=== PATIENT | female | born 2000 | race Caucasian/White ===

== ENCOUNTER 2018-09-03 08:10 | Emergency (ER) | payer BC, OTHER ==
--- NOTE | 2018-09-03 08:14 | ER Report ---
History and Physical Time Seen By MD: 08:14 HPI/ROS CHIEF COMPLAINT: Abdominal pain, nausea HISTORY OF PRESENT ILLNESS: Patient is a 18-year-old female here with complaints of diffuse abdominal pain, nausea. Patient is afebrile at time of evaluation, hemodynamically stable. Patient is able to tolerate oral intake. REVIEW OF SYSTEMS: Constitutional: No fever, no chills. Eyes: No discharge. ENT: No sore throat. Cardiovascular: No chest pain, no palpitations. Respiratory: No cough, no shortness of breath. Gastrointestinal: Diffuse abdominal pain, no vomiting.+ Nausea Genitourinary: No hematuria. Musculoskeletal: No back pain. Skin: No rashes. Neurological: No headache. Allergies: Coded Allergies: ibuprofen (Verified Allergy, Intermediate, chest pain , 09/03/18) Constitutional Physical Exam General Appearance: The patient is alert, has no immediate need for airway protection and no signs of toxicity. No acute distress Eyes: Pupils equal and round no pallor or injection. ENT, Mouth: Mucous membranes are moist. Respiratory: There are no retractions, lungs are clear to auscultation. Cardiovascular: Regular rate and rhythm. Gastrointestinal: + Diffuse abdominal pain, no distention, rebound or guarding Neurological: No focal neurological findings Skin: Warm and dry, no rashes. Musculoskeletal: Neck is supple non tender. Extremities are nontender, nonswollen and have full range of motion. DIFFERENTIAL DIAGNOSIS: After history and physical exam differential diagnosis was considered for abdominal pain including but not limited to appendicitis, cholecystitis, gastritis and urinary tract infection. Medical Decision Making Data Points Laboratory Hematology Test 09/03/18 08:12 09/03/18 08:40 Urine Color Yellow Urine Clarity Slightly-cloudy Urine pH 5.0 pH (4.8-9.5) Urine Specific Hobbs 1.025 Urine Protein Negative mg/dL (NEGATIVE) Urine Glucose (UA) Negative mg/dL (NEGATIVE) Urine Ketones Negative mg/dL (NEGATIVE) Urine Blood Negative (NEGATIVE) Urine Nitrite Negative (NEGATIVE) Urine Bilirubin Negative (NEGATIVE) Urine Urobilinogen Negative mg/dL (0.2-1.9) Urine Leukocyte Esterase Negative (NEGATIVE) Urine RBC <1 /HPF (0-2/HPF) Urine WBC 2 /HPF (0-5/HPF) Urine Squamous Epithelial Cells Many /LPF (</=FEW) Urine Bacteria Few /HPF (NONE-FEW) Urine Mucus Few /HPF (NONE-FEW) Red Blood Count 4.89 M/uL (4.17-5.56) Mean Corpuscular Volume 91.7 fL (80.0-96.0) Mean Corpuscular Hemoglobin 30.2 pg (26.0-33.0) Mean Corpuscular Hemoglobin Concent 32.9 g/dL (32.0-36.0) Red Cell Distribution Width 14.5 % (11.5-14.5) Mean Platelet Volume 7.5 fL (7.2-11.1) Neutrophils (%) (Auto) 58.2 % (39.4-72.5) Lymphocytes (%) (Auto) 33.0 % (17.6-49.6) Monocytes (%) (Auto) 7.3 % (4.1-12.4) Eosinophils (%) (Auto) 1.0 % (0.4-6.7) Basophils (%) (Auto) 0.5 % (0.3-1.4) Nucleated RBC Relative Count (auto) 0.1 /100WBC Neutrophils # (Auto) 3.8 K/uL (2.0-7.4) Lymphocytes # (Auto) 2.2 K/uL (1.3-3.6) Monocytes # (Auto) 0.5 K/uL (0.3-1.0) Eosinophils # (Auto) 0.1 K/uL (0.0-0.5) Basophils # (Auto) 0.0 K/uL (0.0-0.1) Nucleated RBC Absolute Count (auto) 0.00 K/uL Sodium Level 139 mmol/L (137-145) Potassium Level 3.9 mmol/L (3.5-5.0) Chloride Level 101 mmol/L (98-107) Carbon Dioxide Level 30 mmol/L (22-31) Blood Urea Nitrogen 18 mg/dl (7-18) Creatinine 1.10 mg/dl (0.52-1.04) Glomerular Filtration Rate Calc > 60.0 Random Glucose 86 mg/dl (75-110) Lactate 1.1 mmol/L (0.7-2.1) Calcium Level 9.5 mg/dl (8.4-10.2) Total Bilirubin 0.6 mg/dl (0.2-1.3) Aspartate Amino Transf (AST/SGOT) 29 U/L (0-35) Alanine Aminotransferase (ALT/SGPT) 34 U/L (0-56) Alkaline Phosphatase 78 U/L (0-126) C-Reactive Protein < 0.5 mg/dl (<1.0) Total Protein 7.7 g/dl (6.3-8.2) Albumin 4.6 g/dl (3.5-5.0) Lipase 188 U/L (23-300) Human Chorionic Gonadotropin, Qual Negative (NEGATIVE) Chemistry Test 09/03/18 08:12 09/03/18 08:40 Urine Color Yellow Urine Clarity Slightly-cloudy Urine pH 5.0 pH (4.8-9.5) Urine Specific Hobbs 1.025 Urine Protein Negative mg/dL (NEGATIVE) Urine Glucose (UA) Negative mg/dL (NEGATIVE) Urine Ketones Negative mg/dL (NEGATIVE) Urine Blood Negative (NEGATIVE) Urine Nitrite Negative (NEGATIVE) Urine Bilirubin Negative (NEGATIVE) Urine Urobilinogen Negative mg/dL (0.2-1.9) Urine Leukocyte Esterase Negative (NEGATIVE) Urine RBC <1 /HPF (0-2/HPF) Urine WBC 2 /HPF (0-5/HPF) Urine Squamous Epithelial Cells Many /LPF (</=FEW) Urine Bacteria Few /HPF (NONE-FEW) Urine Mucus Few /HPF (NONE-FEW) White Blood Count 6.5 k/uL (4.5-11.0) Red Blood Count 4.89 M/uL (4.17-5.56) Hemoglobin 14.8 g/dL (12.0-16.0) Hematocrit 44.9 % (34.0-47.0) Mean Corpuscular Volume 91.7 fL (80.0-96.0) Mean Corpuscular Hemoglobin 30.2 pg (26.0-33.0) Mean Corpuscular Hemoglobin Concent 32.9 g/dL (32.0-36.0) Red Cell Distribution Width 14.5 % (11.5-14.5) Platelet Count 295 K/uL (150-450) Mean Platelet Volume 7.5 fL (7.2-11.1) Neutrophils (%) (Auto) 58.2 % (39.4-72.5) Lymphocytes (%) (Auto) 33.0 % (17.6-49.6) Monocytes (%) (Auto) 7.3 % (4.1-12.4) Eosinophils (%) (Auto) 1.0 % (0.4-6.7) Basophils (%) (Auto) 0.5 % (0.3-1.4) Nucleated RBC Relative Count (auto) 0.1 /100WBC Neutrophils # (Auto) 3.8 K/uL (2.0-7.4) Lymphocytes # (Auto) 2.2 K/uL (1.3-3.6) Monocytes # (Auto) 0.5 K/uL (0.3-1.0) Eosinophils # (Auto) 0.1 K/uL (0.0-0.5) Basophils # (Auto) 0.0 K/uL (0.0-0.1) Nucleated RBC Absolute Count (auto) 0.00 K/uL Glomerular Filtration Rate Calc > 60.0 Lactate 1.1 mmol/L (0.7-2.1) Calcium Level 9.5 mg/dl (8.4-10.2) Total Bilirubin 0.6 mg/dl (0.2-1.3) Aspartate Amino Transf (AST/SGOT) 29 U/L (0-35) Alanine Aminotransferase (ALT/SGPT) 34 U/L (0-56) Alkaline Phosphatase 78 U/L (0-126) C-Reactive Protein < 0.5 mg/dl (<1.0) Total Protein 7.7 g/dl (6.3-8.2) Albumin 4.6 g/dl (3.5-5.0) Lipase 188 U/L (23-300) Human Chorionic Gonadotropin, Qual Negative (NEGATIVE) Urinalysis Test 09/03/18 08:12 Urine Color Yellow Urine Clarity Slightly-cloudy Urine pH 5.0 pH (4.8-9.5) Urine Specific Hobbs 1.025 Urine Protein Negative mg/dL (NEGATIVE) Urine Glucose (UA) Negative mg/dL (NEGATIVE) Urine Ketones Negative mg/dL (NEGATIVE) Urine Blood Negative (NEGATIVE) Urine Nitrite Negative (NEGATIVE) Urine Bilirubin Negative (NEGATIVE) Urine Urobilinogen Negative mg/dL (0.2-1.9) Urine Leukocyte Esterase Negative (NEGATIVE) Urine RBC <1 /HPF (0-2/HPF) Urine WBC 2 /HPF (0-5/HPF) Urine Squamous Epithelial Cells Many /LPF (</=FEW) Urine Bacteria Few /HPF (NONE-FEW) Urine Mucus Few /HPF (NONE-FEW) EKG/Imaging Imaging CT ABDOMEN PELVIS W/ CON HISTORY: RLQ abd pain TECHNIQUE: Following administration of IV contrast contiguous axial images acquired through the abdomen/pelvis. Coronal and sagittal reformatting also performed.Dose Lowering Technique One of the following dose optimization techniques was utilized in the performance of this exam: Automated exposure control; adjustment of the mA and/or kV according to the patient's size; or use of an iterative reconstruction technique. Specific details can be referenced in the facility's radiology CT exam operational policy. CONTRAST: 75 mL Isovue-370 COMPARISON: None. FINDINGS: Visualized lung bases: Negative. Hepatobiliary: There is very mild periportal edema. Gallbladder is not visualized and may been surgically removed versus severely contracted. The common bile duct is mildly prominent at 7 mm in diameter although tapers smoothly to the pancreatic head. This could be related to postcholecystectomy changes at the patient has had a cholecystectomy Spleen: Negative. Adrenals: Negative. Pancreas: Negative. Kidneys ureters or bladder: Negative Genitalia: There Is a 1.9 cm right ovarian cyst. A trace amount of free pelvic fluid GI: The appendix is visualized and does not appear inflamed. There is a moderate amount of fecal material throughout the colon which can be seen with constipation Vessels/spaces/nodes: Negative. Bones/soft tissues: Negative. Additional findings: None pertinent. IMPRESSION: The appendix is visualized and does not appear inflamed There is a moderate amount of fecal material throughout colon which can seen with constipation 1.9 cm right ovarian cyst with a trace amount of free pelvic fluid There is very mild periportal edema which can be seen with IV hydration The gallbladder is not visualized and may have been surgically removed versus severely contracted. The common bile duct is mildly prominent 7 mm in diameter although tapers smoothly to the pancreatic head. This could be related to post cystectomy changes at the patient has had a prior cholecystectomy ED Course/Re-evaluation ED Course Patient is a 18-year-old female here with complaints of diffuse abdominal pain, nonsurgical on abdominal examination. CT imaging showed no acute findings of appendicitis. Patient was given symptomatic treatment, labs were unremarkable, lactate is negative, with no leukocytosis. Recommend close follow-up with PCP in 24-48 hours. Return precautions provided Decision to Disposition Date: Sep 03, 2018 Decision to Disposition Time: 10:18 Depart Departure Latest Vital Signs Impression: Primary Impression: Abdominal pain Condition: Improved Disposition: HOME OR SELF-CARE Patient Instructions: Acute Abdominal Pain (DC) Additional Instructions: Please drink plenty of water. Your CT imaging scan was negative for appendicitis. Your labs were found to be normal today. Please follow-up with your primary care provider in the next 24-48 hours to reevaluate. Please return immediately if she develop worsening pain, fevers, inability keep down food or fluids, KASSI RICO DO Sep 03, 2018 08:14
[2018-09-03] MEDS ORDERED: NS(*) 0.9% 1000 ML BAG 1,000 ML IV ONE (08:45)
[2018-09-03] MEDS ORDERED: ONDANSETRON 4 MG/2 ML VIAL IVP ONE (08:45)
[2018-09-03 08:50] LABS: PLATELET COUNT, AUTOMATED 295 K/uL (150-450)
--- NOTE | 2018-09-03 10:09 | RADIOLOGY IMAGING REPORT ---
FACILITY: [facility] - [place] PATIENT NAME: Flavio Wilson : 2000 MR: [id number] V: [id number] EXAM DATE: ORDERING PHYSICIAN: KASSI RICO TECHNOLOGIST: Location: [facility] [place] Patient: Flavio Wilson : 2000 Visit/Account:[id number] Date of Sevice: 09/03/2018 CT ABDOMEN PELVIS W/ CON HISTORY: RLQ abd pain TECHNIQUE: Following administration of IV contrast contiguous axial images acquired through the abdom en/pelvis. Coronal and sagittal reformatting also performed.Dose Lowering Technique One of the following dose optimization techniques was utilized in the performance of this exam: Autom ated exposure control; adjustment of the mA and/or kV according to the patient's size; or use of an i terative reconstruction technique. Specific details can be referenced in the facility's radiology C T exam operational policy. CONTRAST: 75 mL Isovue-370 COMPARISON: None. FINDINGS: Visualized lung bases: Negative. Hepatobiliary: There is very mild periportal edema. Gallbladder is not visualized and may been surg ically removed versus severely contracted. The common bile duct is mildly prominent at [address] although tapers smoothly to the pancreatic head. This could be related to postcholecystectomy ch anges at the patient has had a cholecystectomy Spleen: Negative. Adrenals: Negative. Pancreas: Negative. Kidneys ureters or bladder: Negative Genitalia: There Is a 1.9 cm right ovarian cyst. A trace amount of free pelvic fluid GI: The appendix is visualized and does not appear inflamed. There is a moderate amount of fecal ma terial throughout the colon which can be seen with constipation Vessels/spaces/nodes: Negative. Bones/soft tissues: Negative. Additional findings: None pertinent. IMPRESSION: The appendix is visualized and does not appear inflamed There is a moderate amount of fecal material throughout colon which can seen with constipation 1.9 cm right ovarian cyst with a trace amount of free pelvic fluid There is very mild periportal edema which can be seen with IV hydration The gallbladder is not visualized and may have been surgically removed versus severely contracted. T he common bile duct is mildly prominent 7 mm in diameter although tapers smoothly to the pancreatic h ead. This could be related to post cystectomy changes at the patient has had a prior cholecystectomy Report Dictated By: Michell Schmitt MD at 09/03/2018 9:54 AM Report E-Signed By: Michell Schmitt MD at 09/03/2018 10:05 AM EDGARDN:[id number]
[2018-09-03 10:29] VITALS: BP 115/72
== END 2018-09-03 10:31 | disposition home or self-care (01) ==
LOC: ER 08:27
DX: R10.9 Unspecified abdominal pain (principal)
CPT/HCPCS: 74177; 81001; 83605; 83690; 84703; 85025; 86140; 96361; 96374; 99284; J2405; J7030; 82040; 82247; 82310; 82374; 82435; 82565; 82947; 84075; 84132; 84155; 84295; 84450; 84460; 84520; Q9967

== ENCOUNTER 2018-09-12 18:12 | Emergency (ER) | payer BC, OTHER ==
[2018-09-12 18:32] VITALS: BP 94/67
[2018-09-12] MEDS ORDERED: ONDA4TAB9 PO (18:36)
[2018-09-12] MEDS ORDERED: OSE75 FT (18:36)
--- NOTE | 2018-09-12 19:43 | ER Report ---
History and Physical Time Seen By MD: 19:42 Hx. of Stated Complaint: COPPER IUD PLACED THU, PAIN IN RLQ SINCE. DX WITH FLU THURSDAY. HPI/ROS CHIEF COMPLAINT: Abdominal pain HISTORY OF PRESENT ILLNESS: This is a 18-year-old female who presents to the emergency department for abdominal pain. Patient states that she was diagnosed on Thursday with influenza, has had right lower quadrant abdominal pain since having her Copper IUD placed Thursday, patient states she's had discomfort since, according to the patient the provider that placed at [facility] no complications, however she has had vaginal bleeding since the IUD was placed. She also has aches and chills, intermittent nausea no vomiting. She also states that it's been roughly 2 days since her last bowel movement. No chest pain or shortness of breath. No rashes. No headaches. REVIEW OF SYSTEMS: Constitutional: As above. Eyes: No discharge. ENT: No sore throat. Cardiovascular: No chest pain, no palpitations. Respiratory: No cough, no shortness of breath. Gastrointestinal: As above. Genitourinary: No hematuria. SALESPERSON TERRAZZO TILES: As above. Musculoskeletal: No back pain. Skin: No rashes. Neurological: No headache. Allergies: Coded Allergies: No Known Drug Allergies (Unverified , 09/12/18) Home Meds Reported Medications Ondansetron 4 Mg Odt (ONDANSETRON 4 MG ODT) 4 Mg Tab.rapdis, 4 MG PO ONCE, TAB 09/12/18 Oseltamivir Phosphate (TAMIFLU) 75 Mg Cap, 75 MG FT, CAP 09/12/18 Past Medical/Surgical History Patient has a past medical and surgical history of exercise-induced asthma, tearful toe fracture, cholecystectomy. Reviewed Nurses Notes: Yes Hx Substance Use Disorder: No Constitutional Vital Sign - Last 24 Hours 09/12/18 09/12/18 18:32 19:40 Temp 98.4 98.1 Pulse 69 60 Resp 20 18 B/P (MAP) 94/67 113/54 (73) Pulse Ox 89 95 O2 Delivery Room Air Room Air Physical Exam General Appearance: The patient is alert, has no immediate need for airway protection and no signs of toxicity. Eyes: Pupils equal and round no pallor or injection. ENT, Mouth: Mucous membranes are moist. Respiratory: There are no retractions, lungs are clear to auscultation. Cardiovascular: Regular rate and rhythm. Gastrointestinal: Abdomen is soft, tenderness to the right lower quadrants, marrying the umbilicus, no masses, hypoactive bowel sounds. SALESPERSON TERRAZZO TILES: The vulva was normal no lesions. The vagina did have small amount of bloody discharge, no clots noted. The cervix was closed no bleeding and no purulent drainage. The uterus was normal size and non tender. The adnexa had no masses and no tenderness. The exam was performed with a bookbinder apprentice. Neurological: Alert and oriented 4. Moving all extremities. Following all commands. No focal neuro deficits. Skin: Warm and dry, no rashes. Musculoskeletal: Neck is supple non tender. Extremities are nontender, nonswollen and have full range of motion. DIFFERENTIAL DIAGNOSIS: After history and physical exam differential diagnosis was considered for ovarian abscess, ovarian cyst, displaced IUD, constipation. Medical Decision Making Data Points Result Diagram: 09/12/18200409/12/182004 Laboratory Hematology Test 09/12/18 18:40 09/12/18 20:05 09/12/18 20:30 Urine Color Yellow Urine Clarity Clear Urine pH 7.0 pH (4.8-9.5) Urine Specific [place] 1.011 Urine Protein Negative mg/dL (NEGATIVE) Urine Glucose (UA) Negative mg/dL (NEGATIVE) Urine Ketones Negative mg/dL (NEGATIVE) Urine Blood Moderate (NEGATIVE) Urine Nitrite Negative (NEGATIVE) Urine Bilirubin Negative (NEGATIVE) Urine Urobilinogen Negative mg/dL (0.2-1.9) Urine Leukocyte Esterase Negative (NEGATIVE) Urine RBC 32 /HPF (0-2/HPF) Urine WBC 1 /HPF (0-5/HPF) Urine Squamous Epithelial Cells Few /LPF (</=FEW) Urine Bacteria Negative /HPF (NONE-FEW) Urine Mucus None /HPF (NONE-FEW) Red Blood Count 5.01 M/uL (4.17-5.56) Mean Corpuscular Volume 90.5 fL (80.0-96.0) Mean Corpuscular Hemoglobin 30.4 pg (26.0-33.0) Mean Corpuscular Hemoglobin Concent 33.5 g/dL (32.0-36.0) Red Cell Distribution Width 14.6 % (11.5-14.5) Mean Platelet Volume 7.5 fL (7.2-11.1) Neutrophils (%) (Auto) 33.7 % (39.4-72.5) Lymphocytes (%) (Auto) 51.2 % (17.6-49.6) Monocytes (%) (Auto) 13.2 % (4.1-12.4) Eosinophils (%) (Auto) 0.5 % (0.4-6.7) Basophils (%) (Auto) 1.4 % (0.3-1.4) Nucleated RBC Relative Count (auto) 0.3 /100WBC Neutrophils # (Auto) 1.0 K/uL (2.0-7.4) Lymphocytes # (Auto) 1.5 K/uL (1.3-3.6) Monocytes # (Auto) 0.4 K/uL (0.3-1.0) Eosinophils # (Auto) 0.0 K/uL (0.0-0.5) Basophils # (Auto) 0.0 K/uL (0.0-0.1) Nucleated RBC Absolute Count (auto) 0.01 K/uL Sodium Level 140 mmol/L (137-145) Potassium Level 4.2 mmol/L (3.5-5.0) Chloride Level 104 mmol/L (98-107) Carbon Dioxide Level 28 mmol/L (22-31) Blood Urea Nitrogen 14 mg/dl (7-18) Creatinine 0.90 mg/dl (0.52-1.04) Glomerular Filtration Rate Calc > 60.0 Random Glucose 82 mg/dl (75-110) Calcium Level 9.0 mg/dl (8.4-10.2) Total Bilirubin 0.2 mg/dl (0.2-1.3) Aspartate Amino Transf (AST/SGOT) 50 U/L (0-35) Alanine Aminotransferase (ALT/SGPT) 39 U/L (0-56) Alkaline Phosphatase 67 U/L (0-126) Total Protein 7.3 g/dl (6.3-8.2) Albumin 4.3 g/dl (3.5-5.0) Lipase 232 U/L (23-300) Chemistry Test 09/12/18 18:40 09/12/18 20:05 09/12/18 20:30 Urine Color Yellow Urine Clarity Clear Urine pH 7.0 pH (4.8-9.5) Urine Specific [place] 1.011 Urine Protein Negative mg/dL (NEGATIVE) Urine Glucose (UA) Negative mg/dL (NEGATIVE) Urine Ketones Negative mg/dL (NEGATIVE) Urine Blood Moderate (NEGATIVE) Urine Nitrite Negative (NEGATIVE) Urine Bilirubin Negative (NEGATIVE) Urine Urobilinogen Negative mg/dL (0.2-1.9) Urine Leukocyte Esterase Negative (NEGATIVE) Urine RBC 32 /HPF (0-2/HPF) Urine WBC 1 /HPF (0-5/HPF) Urine Squamous Epithelial Cells Few /LPF (</=FEW) Urine Bacteria Negative /HPF (NONE-FEW) Urine Mucus None /HPF (NONE-FEW) White Blood Count 2.9 k/uL (4.5-11.0) Red Blood Count 5.01 M/uL (4.17-5.56) Hemoglobin 15.2 g/dL (12.0-16.0) Hematocrit 45.3 % (34.0-47.0) Mean Corpuscular Volume 90.5 fL (80.0-96.0) Mean Corpuscular Hemoglobin 30.4 pg (26.0-33.0) Mean Corpuscular Hemoglobin Concent 33.5 g/dL (32.0-36.0) Red Cell Distribution Width 14.6 % (11.5-14.5) Platelet Count 222 K/uL (150-450) Mean Platelet Volume 7.5 fL (7.2-11.1) Neutrophils (%) (Auto) 33.7 % (39.4-72.5) Lymphocytes (%) (Auto) 51.2 % (17.6-49.6) Monocytes (%) (Auto) 13.2 % (4.1-12.4) Eosinophils (%) (Auto) 0.5 % (0.4-6.7) Basophils (%) (Auto) 1.4 % (0.3-1.4) Nucleated RBC Relative Count (auto) 0.3 /100WBC Neutrophils # (Auto) 1.0 K/uL (2.0-7.4) Lymphocytes # (Auto) 1.5 K/uL (1.3-3.6) Monocytes # (Auto) 0.4 K/uL (0.3-1.0) Eosinophils # (Auto) 0.0 K/uL (0.0-0.5) Basophils # (Auto) 0.0 K/uL (0.0-0.1) Nucleated RBC Absolute Count (auto) 0.01 K/uL Glomerular Filtration Rate Calc > 60.0 Calcium Level 9.0 mg/dl (8.4-10.2) Total Bilirubin 0.2 mg/dl (0.2-1.3) Aspartate Amino Transf (AST/SGOT) 50 U/L (0-35) Alanine Aminotransferase (ALT/SGPT) 39 U/L (0-56) Alkaline Phosphatase 67 U/L (0-126) Total Protein 7.3 g/dl (6.3-8.2) Albumin 4.3 g/dl (3.5-5.0) Lipase 232 U/L (23-300) Urinalysis Test 09/12/18 18:40 Urine Color Yellow Urine Clarity Clear Urine pH 7.0 pH (4.8-9.5) Urine Specific [place] 1.011 Urine Protein Negative mg/dL (NEGATIVE) Urine Glucose (UA) Negative mg/dL (NEGATIVE) Urine Ketones Negative mg/dL (NEGATIVE) Urine Blood Moderate (NEGATIVE) Urine Nitrite Negative (NEGATIVE) Urine Bilirubin Negative (NEGATIVE) Urine Urobilinogen Negative mg/dL (0.2-1.9) Urine Leukocyte Esterase Negative (NEGATIVE) Urine RBC 32 /HPF (0-2/HPF) Urine WBC 1 /HPF (0-5/HPF) Urine Squamous Epithelial Cells Few /LPF (</=FEW) Urine Bacteria Negative /HPF (NONE-FEW) Urine Mucus None /HPF (NONE-FEW) EKG/Imaging EKG Interpretation 12 lead EKG: Time of EKG 2041, immediately after the patient developed left chest pain. Rhythm: Sinus bradycardia, ventricular rate 50 bpm. [place]: normal QRS: normal ST segments: No ST depression or elevation identified. Inverted T waves in V1, V2, V3, flattened T waves in V4, V5. [ ] Imaging Location: [facility] Patient: Flavio Wilson : 2000 Visit/Account:[id number] Date of Sevice: 09/12/2018 KUB SINGLE VIEW ABDOMEN HISTORY: Abdominal and chest pain. COMPARISON: CT scan of the abdomen and pelvis 09/03/2018. Chest x-ray was performed at the same time as the current examination. FINDINGS: A single AP supine view of the abdomen was obtained. IUD projects in the pelvis. Distribution of bowel gas is normal with bowel in all four quadrants as well as centrally. There is mild to moderate stool burden. No dilated bowel loops. No free air. There is a mild rightward curvature of the lumbar spine. Sacroiliac joints are patent without widening. There is no pubic diastases. IMPRESSION: 1. Unremarkable bowel gas pattern without obstruction. Report Dictated By: Isabelle Barrett at 09/12/2018 9:19 PM Report E-Signed By: Isabelle Barrett at 09/12/2018 9:21 PM WSN:[id number] Location: [facility] Patient: Flavio Wilson : 2000 Visit/Account:[id number] Date of Sevice: 09/12/2018 CHEST SINGLE AP 09/12/2018 21:05 hours. HISTORY: Abdominal and chest pain. COMPARISON: None. KUB was performed at the same time as the current examination. TECHNIQUE: Portable AP view of the chest. FINDINGS: Tubes/lines/hardware: None. Pulmonary/pleura: Lungs are clear. There is no pneumothorax or pleural effusion. Cardiomediastinal: Cardiac and mediastinal silhouettes are within normal limits. Bones/soft tissues: No acute osseous abnormality. The visible abdomen is normal. IMPRESSION: 1. No acute cardiopulmonary process. Report Dictated By: Isabelle Barrett at 09/12/2018 9:21 PM Report E-Signed By: Isabelle Barrett at 09/12/2018 9:22 PM WSN:[id number] ED Course/Re-evaluation Clinical Indication for ER IV: Hydration, IV Access ED Course The patient was admitted to room. A history and physical were obtained. Differential diagnoses were considered. IV was started. A CBC, CMP and UA were collected. KUB was negative for any acute findings, negative chest x-ray, as the patient was prepped for ultrasound, she developed left-sided chest pain along the left costal margin, EKG was obtained no concerning findings on the EKG or x- ray, the pain did dissipate rather quickly, I do believe that there is a certain amount of anxiety involved. A pelvic exam was completed, as noted below, no concerning findings. The patient was given 4 mg IV Zofran and 4 mg IV morphine with relief of most of her symptoms. GC chlamydia was sent out. Pelvic exam: The vulva was normal no lesions. The vagina did have small amount of bloody discharge, no clots noted. The cervix was closed no bleeding and no purulent drainage. The uterus was normal size and non tender. The adnexa had no masses and no tenderness. The exam was performed with a bookbinder apprentice. 09/12/2018 8:47:34 pm patient developed sudden onset of left anterior chest pain, along the costal margin, EKG done, showing no ST depression or elevation, after several minutes evaluation of the patient her symptoms have improved. 09/12/2018 10:19:30 pm review the results with Dr. Marino, she agreed that the patient would be okay to go home and follow-up with either the patient's primary care or [employer] [employer]. Decision to Disposition Date: Sep 12, 2018 Decision to Disposition Time: 22:24 Depart Departure Latest Vital Signs Vital Signs Date Time Temp Pulse Resp B/P (MAP) Pulse Ox O2 Delivery O2 Flow Rate FiO2 09/12/18 19:40 98.1 60 18 113/54 (73) 95 Room Air Impression: Primary Impression: Vaginal bleeding Additional Impressions: Pelvic pain Influenza A Condition: Improved Disposition: HOME OR SELF-CARE Referrals: SHAHRIAR HILARIO PA-C, KIM N MD Patient Instructions: Influenza (ED), Intrauterine Device (GEN), Pelvic Pain (ED) Additional Instructions: There were no concerning findings on the ultrasound, x-rays, EKG or laboratory studies. The laboratory studies are consistent with a viral illness, such as influenza. I believe you are experiencing some discomfort from the influenza virus. The vaginal bleeding is likely from the IUD placement. I would recommend following up with an [employer] for more comprehensive care on her SALESPERSON TERRAZZO TILES requirements, I would recommend within one week for reevaluation. Take ibuprofen or Tylenol as needed for pain. Drink plenty of water. Get plenty of rest. Return to the ER for any concerns or worsening symptoms. Problem Qualifiers DESTINY LIN COMMERCIAL LEASE ADMINISTRATOR-BC Sep 12, 2018 19:43
[2018-09-12] MEDS ORDERED: NS(*) 0.9% 1000 ML BAG 1,000 ML IV ONE (19:52)
[2018-09-12] MEDS ORDERED: MORPHINE 4 MG/ML SDV IVP ONE (19:55)
[2018-09-12] MEDS ORDERED: ONDANSETRON 4 MG/2 ML VIAL IVP ONE (19:55)
[2018-09-12 20:14] LABS: PLATELET COUNT, AUTOMATED 222 K/uL (150-450)
--- NOTE | 2018-09-12 21:26 | RADIOLOGY IMAGING REPORT ---
FACILITY: [facility] - [place] PATIENT NAME: Flavio Wilson : 2000 MR: [id number] V: [id number] EXAM DATE: ORDERING PHYSICIAN: DESTINY LIN TECHNOLOGIST: Location: [facility] Patient: Flavio Wilson : 2000 Visit/Account:[id number] Date of Sevice: 09/12/2018 KUB SINGLE VIEW ABDOMEN HISTORY: Abdominal and chest pain. COMPARISON: CT scan of the abdomen and pelvis 09/03/2018. Chest x-ray was performed at the same time a s the current examination. FINDINGS: A single AP supine view of the abdomen was obtained. IUD projects in the pelvis. Distribution of bowel gas is normal with bowel in all four quadrants as well as centrally. There is m ild to moderate stool burden. No dilated bowel loops. No free air. There is a mild rightward curvature of the lumbar spine. Sacroiliac joints are patent without widenin g. There is no pubic diastases. IMPRESSION: 1. Unremarkable bowel gas pattern without obstruction. Report Dictated By: Isabelle Barrett at 09/12/2018 9:19 PM Report E-Signed By: Isabelle Barrett at 09/12/2018 9:21 PM WSN:[id number]
--- NOTE | 2018-09-12 21:27 | RADIOLOGY IMAGING REPORT ---
FACILITY: [facility] [place]IENT NAME: Flavio Wilson : 2000 MR: [id number] V: [id number] EXAM DATE: ORDERING PHYSICIAN: DESTINY LIN TECHNOLOGIST: Location: [facility] [place] Patient: Flavio Wilson : 2000 Visit/Account:[id number] Date of Sevice: 09/12/2018 CHEST SINGLE AP 09/12/2018 21:05 hours. HISTORY: Abdominal and chest pain. COMPARISON: None. KUB was performed at the same time as the current examination. TECHNIQUE: Portable AP view of the chest. FINDINGS: Tubes/lines/hardware: None. Pulmonary/pleura: Lungs are clear. There is no pneumothorax or pleural effusion. Cardiomediastinal: Cardiac and mediastinal silhouettes are within normal limits. Bones/soft tissues: No acute osseous abnormality. The visible abdomen is normal. IMPRESSION: 1. No acute cardiopulmonary process. Report Dictated By: Isabelle Barrett at 09/12/2018 9:21 PM Report E-Signed By: Isabelle Barrett at 09/12/2018 9:22 PM WSN:[id number]
--- NOTE | 2018-09-12 21:30 | EKG ---
FACILITY: [facility] - [place] PATIENT NAME: CARSON DILLON : [id number] MR: [id number] V: [id number] EXAM DATE: ORDERING PHYSICIAN: DESTINY LIN TECHNOLOGIST: MAE Test Reason : CHEST PAIN Blood Pressure : / mmHG Vent. Rate : 050 BPM Atrial Rate : 050 BPM P-R Int : 148 ms QRS Dur : 078 ms QT Int : 482 ms P-R-T Axes : 063 083 051 degrees QTc Int : 439 ms Sinus bradycardia T inversion consistent with anterior/septal ischemia vs normal variant No previous ECGs available Confirmed by JASON VANCE ([id number]) on 09/12/2018 11:09:45 PM Referred By: Confirmed By:JASON VANCE
--- NOTE | 2018-09-12 22:18 | RADIOLOGY IMAGING REPORT ---
[place] [facility] [place] NAME: Flavio Wilson : 2000 MR: [id number] V: [id number] EXAM DATE: ORDERING PHYSICIAN: DESTINY LIN TECHNOLOGIST: Location: [facility] - [place] Patient: Flavio Wilson : 2000 Visit/Account:[id number] Date of Sevice: 09/12/2018 TRANSVAGINAL NON-OB HISTORY: Pain and bleeding since IUD placed September 08. Positive for influenza A. COMPARISON: None. TECHNIQUE: Endovaginal ultrasound pelvis. Grayscale, color flow Doppler and spectral Doppler were per formed. FINDINGS: Uterus: Normal myometrial echotexture. Uterus measures 7.0 x 3.0 x 3.7 cm. IUD is present in expected location. Endometrium: Normal echotexture. Endometrial thickness is 4 mm. Ovaries and adnexa: Right: The right ovary is normal in echotexture. It measures 3.1 x 1.4 x 2.8 cm. There is normal ovarian venous and arterial flow, and normal arterial and venous waveforms are demonstrated. The rig ht adnexum is normal. Left: The left ovary is normal in echotexture. It measures 2.6 x 1.1 x 3.7 cm. There is normal o varian arterial and venous flow, and normal venous and arterial waveforms are demonstrated. The left adnexum is normal. Free pelvic fluid: Moderate amount in the pelvic cul-de-sac. IMPRESSION: 1. IUD is present in expected location. 2. Normal uterus and ovaries. 3. Moderate amount of simple pelvic free fluid in the pelvic cul-de-sac. Report Dictated By: Isabelle Barrett at 09/12/2018 10:11 PM Report E-Signed By: Isabelle Barrett at 09/12/2018 10:14 PM WSN:[id number]
== END 2018-09-12 22:35 | disposition home or self-care (01) ==
LOC: ER 19:42
DX: N93.9 Abnormal uterine and vaginal bleeding, unspecified (principal); R10.2 Pelvic and perineal pain; J09.X2 Influenza due to identified novel influenza A virus with other respiratory manifestations
CPT/HCPCS: 71045; 74018; 76830; 81001; 83690; 85025; 87491; 87591; 93005; 96361; 96374; 99284; J2270; J2405; J7030; 82040; 82247; 82310; 82374; 82435; 82565; 82947; 84075; 84132; 84155; 84295; 84450; 84460; 84520; 87210; 96375